=== PATIENT | male | born 1975 | race Caucasian/White ===

== ENCOUNTER 2018-08-24 12:40 | Emergency (ER) | payer MEDICAID, OTHER ==
[~2018-08-24] VITALS: Ht 167.6 cm; Wt 143.0 kg
[2018-08-24 13:43] VITALS: Ht 167.6 cm; Wt 143.0 kg
--- NOTE | 2018-08-24 17:07 | ERD ---
ER Documentation Chief Complaint Chief Complaint CP X 2 WEEKS HPI The patient is a 42-year-old male, presenting to the ER because of intermittent left-sided chest discomfort for 2 weeks, worse with moving, had similar symptoms previously, denies fever, chills, neck pain, chest pain with vomiting/radiation/exertion/diaphoresis, dyspnea, abdominal pain, vomiting, dizzy, diarrhea. He does not smoke nor drink or does illicit drug, works in construction Past medical/surgical history: None Family cardiac history: Negative ROS All systems reviewed and are negative except as per history of present illness. Medications Home Meds Active Scripts Ibuprofen* (Motrin*) 600 Mg Tab, 600 MG PO Q6H PRN for PAIN AND OR ELEVATED TEMP, #20 TAB Prov:ENZO JOE MD 08/24/18 Allergies Allergies: Coded Allergies: No Known Allergy (Unverified , 08/24/18) Physical Exam Vitals Vital Signs Date Temp Pulse Resp B/P (MAP) Pulse Ox O2 O2 Flow FiO2 Time Delivery Rate 08/24/18 73 15 128/82 100 Room Air 18:02 (97) 08/24/18 81 19 135/86 100 Room Air 17:22 (102) 08/24/18 97.9 70 16 148/78 95 13:43 (101) Physical Exam Const: No acute distress. Head: Atraumatic. Eyes: Normal Conjunctiva. ENT: Normal External Ears, Nose and Mouth. Neck: Full range of motion. No meningismus. Resp: Clear to auscultation bilaterally. Cardio: Regular rate and rhythm. Abd: Soft, non distended, normal bowel sounds, mild left-sided chest wall tenderness on palpation, no crepitus/erythema Skin: No petechiae or rashes. Back: No midline or flank tenderness. Ext: No cyanosis, or edema. Neur: Awake and alert. No focal deficit Psych: Normal Mood and Affect. Result Diagram: 08/24/18 1723 08/24/18 1723 Results 24 hrs Laboratory Tests Test 08/24/18 17:23 White Blood Count 8.5 10^3/ul Red Blood Count 5.39 10^6/ul Hemoglobin 15.3 g/dl Hematocrit 46.7 % Mean Corpuscular Volume 86.6 fl Mean Corpuscular Hemoglobin 28.4 pg Mean Corpuscular Hemoglobin Concent 32.8 g/dl Red Cell Distribution Width 12.6 % Platelet Count 315 10^3/UL Mean Platelet Volume 10.0 fl Immature Granulocytes % 0.400 % Neutrophils % 60.2 % Lymphocytes % 28.9 % Monocytes % 7.2 % Eosinophils % 2.7 % Basophils % 0.6 % Nucleated Red Blood Cells % 0.0 /100WBC Immature Granulocytes # 0.030 10^3/ul Neutrophils # 5.1 10^3/ul Lymphocytes # 2.5 10^3/ul Monocytes # 0.6 10^3/ul Eosinophils # 0.2 10^3/ul Basophils # 0.1 10^3/ul Nucleated Red Blood Cells # 0.0 10^3/ul D-Dimer 314.00 ng/ml D-Dimer Comment Sodium Level 142 mmol/L Potassium Level 3.9 mmol/L Chloride Level 104 mmol/L Carbon Dioxide Level 29 mmol/L Anion Gap 9 Blood Urea Nitrogen 13 mg/dl Creatinine 0.67 mg/dl Est Glomerular Filtrat Rate mL/min > 60 mL/min Glucose Level 145 mg/dl Calcium Level 9.7 mg/dl Troponin I < 0.012 ng/ml Current Medications Medications Dose Sig/Vasquez Start Time Status Last (Trade) Ordered Route PRN Stop Time Admin Dose Reason Admin Ketorolac 30 mg ONCE STAT 08/24/18 DC 08/24/18 Tromethamine IV 17: 17:30 (Toradol) 08/24/18 17:18 Procedures/MDM [place] [id number] Radiology Main Line: [phone] DIAGNOSTIC IMAGING REPORT Patient: BRADLEY ALVARADO : 1975 Age: 42 Sex: M [id number] DOS: 08/24/18 1717 Ordering MD: ENZO JOE MD Location: E/R Room/Bed: PROCEDURE: XR Chest. CLINICAL INDICATION: Chest pain TECHNIQUE: Single portable view of the chest was obtained. COMPARISON: None. FINDINGS: Cardiac/vascular structures: Normal cardiomediastinal silhouette. Pulmonary: Elevated right diaphragm. Left basilar airspace opacity.. No pleural effusion. No evidence of pneumothorax. Osseous structures: Normal Soft tissues: Normal IMPRESSION: Left basilar airspace opacity may represent atelectasis or pneumonia. RPTAT:AAJJ Physician Michi Date Time Electronically viewed and signed by Juan Luis Hamilton Physician on 08/24/2018 18:11 MH/ CC: ENZO JOE MD [id number] EKG: Read by emergency physician Rate/Rhythm: Normal Sinus Rhythm 73 beats/min QRS, ST, T-waves: No ST elevation, no T inversion Impression: Normal EKG MEDICAL MAKING DECISION: The patient is a 42-year-old male, presenting with acute chest pain, most likely musculoskeletal chest pain. He was treated with Toradol 30 mg IV for pain with good response, as above outpatient follow-up The differential diagnoses considered include but are not limited to acute coronary syndrome, acute myocardial infarction, pericarditis, pulmonary embolism, aortic dissection, pneumonia, pleural effusion, pneumothorax, GERD, chest wall pain. Departure Diagnosis: Primary Impression: Chest pain Condition: Good Comments I discussed the findings with the patient. I advised the patient to follow-up with the primary physician in about 2-3 days, sooner if needed and return if any concern. Disclaimer: Inadvertent spelling and grammatical errors are likely due to EHR/dictation software use and do not reflect on the overall quality of patient care. Also, please note that the electronic time recorded on this note does not necessarily reflect the actual time of the patient encounter. ENZO JOE MD Aug 24, 2018 17:07
[2018-08-24] MEDS ORDERED: KETOROLAC 30 MG INJ IV STA (17:17)
[2018-08-24] MEDS ORDERED: IBUP-1542 PO (18:51)
[2018-08-24 19:25] VITALS: BP 121/85; PULSE 70; RESP 22
== END 2018-08-24 19:28 | disposition home or self-care (01) ==
LOC: E/R 12:40
DX: R07.9 Chest pain, unspecified (principal)
CPT/HCPCS: 36415; 71045; 80048; 84484; 85025; 85378; 93005; 96374; J1885; Z7502